=== PATIENT | female | born 1975 | race Caucasian/White ===

== ENCOUNTER 2017-10-31 11:03 | Emergency (ER) | payer MEDICAID ==
[~2017-10-31] VITALS: Ht 157.5 cm; Wt 97.5 kg
--- NOTE | 2017-10-31 11:03 | NUR ---
Pt placed in bed 7
--- NOTE | 2017-10-31 11:04 | NUR ---
ER at bedside examining patient.
[2017-10-31] MEDS ORDERED: NACL 0.9% 1,000 ML IV ONE (11:09)
[2017-10-31 11:13] VITALS: BP_SYST 138
[2017-10-31] MEDS ORDERED: MORPHINE 4 MG/ML INJ. SYRINGE IM ONE (11:15)
--- NOTE | 2017-10-31 11:30 | NUR ---
Dr Vanegas is aware pt cannot give urine at this time.
--- NOTE | 2017-10-31 11:41 | NUR ---
Pain medication given to pt, tolerated well Addendum: 10/31/17 at 1239 by SHERRY NS would not scan.
[2017-10-31 11:50] LABS: BASOPHILS % (AUTO) 0.5 % (0.0-2.0); EOSINOPHILS # (AUTO) 0.1 K/uL (0.0-0.4); EOSINOPHILS % (AUTO) 0.8 % (0.0-4.0); HEMATOCRIT 38.5 % (36-48); LYMPHOCYTES # (AUTO) 2.8 K/uL (1.0-5.5); LYMPHOCYTES % (AUTO) 37.3 % (20.5-51.5); MEAN CORPUSCULAR HEMOGLOBIN 30 pg (27-31); MEAN CORPUSCULAR HGB CONC 34 % (32-36); MEAN CORPUSCULAR VOLUME 88 fL (79.0-98.0); MONOCYTES # (AUTO) 0.4 K/uL (0.0-1.0); MONOCYTES % (AUTO) 5.4 % (1.7-9.3); NEUTROPHILS # (AUTO) 4.2 K/uL (1.8-7.7); PLATELET COUNT (AUTO) 285 K/uL (130-430); RED BLOOD CELL COUNT(AUTO) 4.38 MIL/uL (4.2-6.2); RED CELL DISTRIBUTION WIDTH 12.7 % (9.0-15.0); WHITE BLOOD COUNT (AUTO) 7.5 K/uL (4.8-10.8)
[2017-10-31 11:51] LABS: CALCIUM 9.2 mg/dL (8.4-11.0); CREATININE 0.65 mg/dL (0.55-1.30); POTASSIUM 4.3 mmol/L (3.5-5.1)
[2017-10-31 11:55] LABS: ALBUMIN 4.1 g/dL (3.4-4.8); PROTHROMBIN TIME 10.2 SECS (9.5-12.5); TOTAL BILIRUBIN 0.3 mg/dL (0.0-1.0)
[2017-10-31] MEDS ORDERED: MORPHINE 4 MG/ML INJ. SYRINGE IVP ONE (12:00)
--- NOTE | 2017-10-31 12:02 | NUR ---
Pt states that the pain shot didn't work. Medicated with MS IVP per MD orders. Bed in lowest position. Side rails up. Pt is on residential monitor. VSS. Will continue to monitor. Advised pt to not get out of bed without assistance. Pt states that she hasn't driven in over a year and that if she gets discharged that her can come and pick her up.
--- NOTE | 2017-10-31 12:22 | NUR ---
Pt states pain medication did not help and is still in pain 03/10. Dr Vanegas is aware and am waiting for new orders.
[2017-10-31] MEDS ORDERED: MAG HYDROX/AL HYDROX/SIMETH 30 ML, BELLADONNA ALKALOIDS/PHENOBARB 10 ML, LIDOCAINE VISC... PO ONE ×9 (12:30)
--- NOTE | 2017-10-31 12:30 | NUR ---
Dr Vanegas is at bedside explaining results to pt.
--- NOTE | 2017-10-31 12:38 | NUR ---
Medication was given, pt tolerated well.
--- NOTE | 2017-10-31 13:15 | NUR ---
Pt went to radiology in stable condition
[2017-10-31 13:49] LABS: BILIRUBIN,URINE NEGATIVE (NEGATIVE); BLOOD, URINE NEGATIVE (NEGATIVE); CLARITY/URINE CLEAR (CLEAR); COLOR,URINE YELLOW (YELLOW); GLUCOSE,URINE NEGATIVE (NEGATIVE); KETONES,URINE NEGATIVE (NEGATIVE); LEUKOCYTE ESTERASE ,URINE NEGATIVE (NEGATIVE); NITRITE, URINE NEGATIVE (NEGATIVE); PROTEIN URINE NEGATIVE (NEGATIVE); UROBILINOGEN,URINE 0.2 (0.2-1.0)
--- NOTE | 2017-10-31 14:10 | NUR ---
Patient given written and verbal discharge instructions and verbalizes understanding. ER MD discussed with patient the results and treatment provided. Patient in stable condition. ID arm band removed. IV catheter removed intact and dressing applied, no active bleeding. Rx of lactulose given. Patient educated on pain management and to follow up with PMD. Pain Scale 3. Pt states is unable to drive and called [employer] to pick her up and mother will be at home to help pt. Opportunity for questions provided and answered. Medication side effect fact sheet provided.
[2017-10-31 14:11] VITALS: BP_SYST 102
== END 2017-10-31 14:10 | disposition home or self-care (01) ==
LOC: SED 11:03
DX: R11.0 Nausea (principal); K59.00 Constipation, unspecified; R10.13 Epigastric pain; G89.29 Other chronic pain; M54.9 Dorsalgia, unspecified
CPT/HCPCS: 36415; 71045; 74176; 80053; 81003; 83690; 84484; 85025; 85610; 93005; 96361; 96374; 99285; J2001; J2270; J7030

== ENCOUNTER 2021-08-12 22:32 | Emergency (ER) | payer BC, MEDICAID ==
[~2021-08-12] VITALS: Ht 157.5 cm; Wt 88.5 kg
[2021-08-12 22:57] VITALS: BP_SYST 135
[2021-08-12] MEDS ORDERED: ONDANSETRON HCL 4 MG/2 ML VIAL ONE (23:56)
[2021-08-13] MEDS ORDERED: NACL 0.9% 1,000 ML IV ONE
[2021-08-13] MEDS ORDERED: KETOROLAC TROMETHAMINE 30 MG VIAL IVP ONE
[2021-08-13] MEDS ORDERED: ONDANSETRON HCL 4 MG/2 ML VIAL IVP ONE
[2021-08-13 00:17] LABS: BASOPHILS # (AUTO) 0.1 K/uL (0.0-0.2); BASOPHILS % (AUTO) 0.5 % (0.0-2.0); EOSINOPHILS # (AUTO) 0.1 K/uL (0.0-0.4); EOSINOPHILS % (AUTO) 0.8 % (0.0-4.0); HEMOGLOBIN 12.2 g/dL (12.0-16.0); LYMPHOCYTES # (AUTO) 3.2 K/uL (1.0-5.5); LYMPHOCYTES % (AUTO) 26.9 % (20.5-51.5); MEAN CORPUSCULAR HEMOGLOBIN 29 pg (27-31); MEAN CORPUSCULAR HGB CONC 34 % (32-36); MEAN CORPUSCULAR VOLUME 86 fL (79.0-98.0); MONOCYTES # (AUTO) 0.7 K/uL (0.0-1.0); MONOCYTES % (AUTO) 5.5 % (1.7-9.3); NEUTROPHILS # (AUTO) 7.9 K/uL (1.8-7.7); NEUTROPHILS % (AUTO) 66.3 % (40.0-70.0); PLATELET COUNT (AUTO) 239 K/uL (130-430); RED BLOOD CELL COUNT(AUTO) 4.19 MIL/uL (4.2-6.2); RED CELL DISTRIBUTION WIDTH 12.3 % (9.0-15.0); WHITE BLOOD COUNT (AUTO) 11.9 K/uL (4.8-10.8)
[2021-08-13 00:21] LABS: CALCIUM 8.6 mg/dL (8.4-11.0); CREATININE 0.55 mg/dL (0.55-1.30); POTASSIUM 4.1 mmol/L (3.5-5.1)
[2021-08-13 00:32] LABS: ALBUMIN 3.7 g/dL (3.4-4.8); TOTAL BILIRUBIN 0.2 mg/dL (0.0-1.0)
[2021-08-13 00:40] LABS: BILIRUBIN,URINE NEGATIVE (NEGATIVE); BLOOD, URINE NEGATIVE (NEGATIVE); CLARITY/URINE CLEAR (CLEAR); COLOR,URINE YELLOW (YELLOW); GLUCOSE,URINE NEGATIVE (NEGATIVE); KETONES,URINE NEGATIVE (NEGATIVE); LEUKOCYTE ESTERASE ,URINE NEGATIVE (NEGATIVE); NITRITE, URINE NEGATIVE (NEGATIVE); PROTEIN URINE NEGATIVE (NEGATIVE); UROBILINOGEN,URINE 0.2 (0.2-1.0)
[2021-08-13 01:33] VITALS: BP_SYST 141
== END 2021-08-13 01:33 | disposition left against medical advice (07) ==
LOC: SED 22:32
DX: R10.11 Right upper quadrant pain (principal)
CPT/HCPCS: 36415; 80053; 81003; 81025; 83690; 84702; 85025; 96361; 96374; 96375; 99284; J1885; J2405; J7030